=== PATIENT | female | born 1945 | race Caucasian/White ===

== ENCOUNTER → 2018-01-08 09:31 | Outpatient (REF) | payer MEDICARE, MEDICAID, SELFPAY ==
[2018-01-08 22:13] LABS: Anion Gap 4.8 mmol/L (3-11); BUN 16 mg/dL (7-18); CO2 31.2 mmol/L (21.0-32.0); CREATININE 1.11 mg/dL (0.55-1.02); Calcium 8.3 mg/dL (8.5-10.1); Chloride 106 mmol/L (98-107); Estimated GFR 48.59 (mL/min/1.73m2); Glucose 74 mg/dL (70-100); Potassium 3.7 mmol/L (3.5-5.1); Sodium 142 mmol/L (136-145)
== END ==
LOC: NCHCN 09:31
PROVIDERS: PCP Nurse Practitioner Family; Visit Provider Registered Nurse
DX: I10 Essential (primary) hypertension (principal)
CPT/HCPCS: 80048

== ENCOUNTER → 2018-01-10 08:25 | Outpatient (REF) | payer MEDICARE, MEDICAID, SELFPAY ==
[2018-01-10 21:40] LABS: Anion Gap 9.4 mmol/L (3-11); BUN 24 mg/dL (7-18); CO2 29.6 mmol/L (21.0-32.0); CREATININE 0.97 mg/dL (0.55-1.02); Calcium 8.8 mg/dL (8.5-10.1); Chloride 103 mmol/L (98-107); Estimated GFR 56.77 (mL/min/1.73m2); Glucose 86 mg/dL (70-100); Potassium 3.9 mmol/L (3.5-5.1); Sodium 142 mmol/L (136-145)
== END ==
LOC: NCHCN 08:25
PROVIDERS: PCP Nurse Practitioner Family; Visit Provider Registered Nurse
DX: I10 Essential (primary) hypertension (principal)
CPT/HCPCS: 80048

== ENCOUNTER 2021-07-30 16:06 | Outpatient (REF) | payer MEDICARE, MEDICAID, SELFPAY ==
[2021-07-30 15:04] LABS: ALT 18 U/L (14-59); AST 18 U/L (15-37); Albumin 3.4 g/dL (3.4-5.0); Alkaline Phosphatase 104 U/L (46-116); Anion Gap 9.5 mmol/L (3-11); BUN 22 mg/dL (7-18); Bilirubin, Total 0.3 mg/dL (0.2-1.0); CO2 28.5 mmol/L (21.0-32.0); Calculated LDL 88 mg/dL (<100); Chloride 103 mmol/L (98-107); Cholesterol 154 mg/dL (<200); Glucose 91 mg/dL (74-106); HDL Cholesterol 48 mg/dL (40-60); Potassium 4.4 mmol/L (3.5-5.1); Sodium 141 mmol/L (136-145); Triglyceride 93 mg/dL (<150)
[2021-07-30 15:12] LABS: Hemoglobin A1C 5.8 % (<5.7)
--- OUTSIDE RECORDS SUMMARY | 2021-07-30 16:14 | XMS_ITS | CCD ---
:1945 Author Care Team Providers Name Role Phone Chelsea COLBERT Attending Physician Unavailable Chelsea COLBERT Rounding (Secondary) Physician Unavailab le Vital Signs Unknown or Not Available. Allergies Allergy Code Allergy Type Reaction Status ASA (aspirin) 1191 Drug allergy Nausea Active ASPIRIN 1191 Drug allergy UNKNOWN Active Procedures Unknown or Not Available. History of Immunizations Unknown or Not Available. Problems Problem Code Start Date Resolved Date Status LOCALIZED OSTEOARTHROSIS, 82296 Ac tive LOWER LEG BMI 40.0-44.9, ADULT V8541 Active Results BASIC METABOLIC PANEL (BMP) - Collect Da te/Time: 04/07/2021 10:11 Test Name Code Test Result Test Units Test Ref Range GLUCOSE 2345-7 97 mg/dL L=70 H=11 6 BUN 3094-0 20 mg/dL L=6 H=25 CREATININE 2160-0 1.02 mg/dL L=0.51 H=0.95 SODIUM SERUM 2951-2 148 mmol/L L=136 H=14 5 POTASSIUM SERUM 2823-3 4.2 mmol/L L=3.4 H =5.2 CHLORIDE SERUM 2075-0 108 mmol/L L=96 H= 110 CARBON DIOXIDE (CO2) 2028-9 30 mmol/L L=22 H=34 ANION GAP 33465-5 9.7 mmol/L CALCIUM SERUM 36288-5 9.0 mg/dL L=8.2 H=10.2 AGE 76 years eGFR (non-Afr.Amer.) 48795-4 53 mL/min eGFR (Afr-Equatorial Guinean) 98082-1 64 mL/min Active Medications Medication Code Dose Units Frequency Route Modification Start Date/Time Lasix 20MG 1 TABLET TWICE A DAY ORAL 1 Oral Tablet 12:35 Prescription Detail TAKE 1 TABLET ORAL TWICE A D AY x 3 days (through 11/28) then continue 1 TAB DAILY Allopurinol [id number] 100 MILLIGRAMS DAILY ORAL 1 100MG Oral 12:26 Tablet Prescription Detail TAKE 100 MILLIGRAMS ORAL TRACY LY Levothyroxine 874730 125 MCG DAILY ORAL 11/25/2020 125MCG Oral Tablet 12:26 Prescription Detail TAKE 125 MCG ORAL DAILY Lisinopril 30MG 162381 30 MILLIGRAMS DAILY ORAL 11/25 Oral Tablet 12:26 Prescription Detail TAKE 30 MILLIGRAMS ORAL ELIE Y Loratadine 10MG 396924 10 MILLIGRAMS DAILY ORAL 11/25 Oral Tablet 12:26 Prescription Detail TAKE 10 MILLIGRAMS ORAL ELIE Y Lovastatin 40MG 073873 40 MILLIGRAMS DAILY ORAL 11/25 Oral Tablet 12:26 Prescription Detail TAKE 40 MILLIGRAMS ORAL ELIE Y Omeprazole 40MG [id number] 40 MILLIGRAMS DAILY ORAL 11/25 Oral Capsule, 12:26 Delayed Release Prescription Detail TAKE 40 MILLIGRAMS ORAL ELIE Y Promethazine HCl 133402 12.5 mL NEEDED ORAL 11/25 6.25MG/5ML Oral EVERY 8 12:26 Syrup HOURS Prescription Detail TAKE 12.5 mL ORAL NEEDED EVERY 8 HOURS Triamcinolone [id number] 1 EACH NEEDED TOPICAL 11/26/19 21 Acetonide 0.1% TWICE APPLICATION 12:26 Topical DAILY application Cream Prescription Detail 1 EACH TOPICAL APPLICATION NEEDED TWICE DAILY Medications Administered During Visit Unknown or Not Available. Encounters Encounter Diagnosis Diagnosis Code Start Date Encounter for examination of blood pressure Z0130 04/07/2021 without abnormal findings Social History Smoking Status Code Start Date End Date Former smoker [id number] Patient Decision Aids Unknown or Not Available. Discharge Instructions You were admitted to [facility] on 04/07/2021 08:48 with a principal diagnosis of Encounter for examination o f blood pressure without abnormal findings You had the following tests done: BASIC METABOLIC PANEL (BMP) You were discharged from [facility] on 04/07/2021 00:00 Should you have any questions prior to d ischarge, please contact a member of your healthcare team. If you have left the ho spital and have any questions, please contact your primary care physician. Chief Complaint and Reason For Visit Unknown or Not Available. Function Status Unknown or Not Available. Plan of Care Unknown or Not Available. Referral/Transition of Care Unknown or Not Available.
--- OUTSIDE RECORDS SUMMARY | 2021-07-30 16:14 | XMS_ITS | CCD ---
[...] Start Date Resolved Date Status LOCALIZED OSTEOARTHROSIS, 65403 Ac tive LOWER LEG BMI 40.0-44.9, ADULT V8541 Active Results Unknown or Not Available. Active Medications Medication Code Dose Units Frequency Route Modification Start Date/Time Lasix 20MG 1 TABLET TWICE A DAY ORAL 1 Oral Tablet 12:35 Prescription Detail TAKE 1 TABLET ORAL TWICE A D AY x 3 days (through 11/28) then continue 1 TAB DAILY Allopurinol 029377 100 MILLIGRAMS DAILY ORAL 1 100MG Oral 12:26 Tablet Prescription Detail TAKE 100 MILLIGRAMS ORAL TRACY LY Levothyroxine 380592 125 MCG DAILY ORAL 11/25/2020 125MCG Oral Tablet 12:26 Prescription Detail TAKE 125 MCG ORAL DAILY Lisinopril 30MG 469268 30 MILLIGRAMS DAILY ORAL 11/25 Oral Tablet 12:26 Prescription Detail TAKE 30 MILLIGRAMS ORAL ELIE Y Loratadine 10MG 373349 10 MILLIGRAMS DAILY ORAL 11/25 Oral Tablet 12:26 Prescription Detail TAKE 10 MILLIGRAMS ORAL ELIE Y Lovastatin 40MG 40 MILLIGRAMS DAILY ORAL 11/25 Oral Tablet 12:26 Prescription Detail TAKE 40 MILLIGRAMS ORAL ELIE Y Omeprazole 40MG [id number] 40 MILLIGRAMS DAILY ORAL 11/25 Oral Capsule, 12:26 Delayed Release Prescription Detail TAKE 40 MILLIGRAMS ORAL ELIE Y Promethazine HCl 281271 12.5 mL NEEDED ORAL 11/25 6.25MG/5ML Oral EVERY 8 12:26 Syrup HOURS Prescription Detail TAKE 12.5 mL ORAL NEEDED EVERY 8 HOURS Triamcinolone 8228093 1 EACH NEEDED TOPICAL 11/26/19 21 Acetonide 0.1% TWICE APPLICATION 12:26 Topical DAILY application Cream Prescription Detail 1 EACH TOPICAL APPLICATION NEEDED TWICE DAILY Medications Administered During Visit Unknown or Not Available. Encounters Encounter Diagnosis Diagnosis Code Start Date Hypertensive heart disease with heart failure I110 04/21/2021 Social History Smoking Status Code Start Date End Date Former smoker [id number] Patient Decision Aids Unknown or Not Available. Discharge Instructions You were admitted to [facility] on 04/21/2021 10:25 with a principal diagnosis of Hypertensive heart disease with heart failure You were discharged from [facility] on 04/21/2021 00:00 Should you have any questions prior [...]
--- OUTSIDE RECORDS SUMMARY | 2021-07-30 16:15 | XMS_ITS | CCD ---
:1945 Author Care Team Providers Name Role Phone Brijesh OVIEDO MD Attending Physician Unavailable NOELLE Er Physician 1 Unavailable MD LILY Rounding (Secondary) Physician Unavailab le Vital Signs Vital Sign Value Unit Date/Time Recent/Initial? BP Systolic 182 mmHg 11/24/2020 17:18 Initial VS BP Diastolic 81 mmHg 11/24/2020 17:18 Initial VS Respiratory Rate 18 bpm 11/24/2020 17:18 Initial VS Heart Rate 105 bpm 11/24/2020 17:18 Initial VS O2 % BldC Oximetry 94 % 11/24/2020 17:18 Initi al VS Body Temperature 36.5 degrees 11/24/2020 17:18 Initial VS BMI (Body Mass 42.38 kg/m^2 11/24/2020 17:23 Initial V S Index) Weight Measured 287.01 lbs 11/24/2020 17:23 Initial VS Height 69 in 11/24/2020 17:23 Initial VS BSA (Body Surface 2.52 m^2 11/24/2020 17:23 Initia l VS Area) Weight Measured 279.3 lbs 11/25/2020 04:20 Most Rec ent VS BP Systolic 122 mmHg 11/25/2020 11:04 Most Recent VS BP Diastolic 68 mmHg 11/25/2020 11:04 Most Recent VS Respiratory Rate 19 bpm 11/25/2020 11:04 Most Re cent VS Heart Rate 62 bpm 11/25/2020 11:04 Most Recent VS O2 % BldC Oximetry 94 % 11/25/2020 11:04 Most Recent VS Body Temperature 36.2 degrees 11/25/2020 11:04 Most Re cent VS Allergies Allergy Code Allergy Type Reaction Status ASA (aspirin) 1191 Drug allergy Nausea Active ASPIRIN 1191 Drug allergy UNKNOWN Active Procedures Unknown or Not Available. History of Immunizations Unknown or Not Available. Problems Problem Code Start Date Resolved Date Status LOCALIZED OSTEOARTHROSIS, 42697 Ac tive LOWER LEG BMI 40.0-44.9, ADULT V8541 Active Results BASIC METABOLIC PANEL (BMP) - Collect Da te/Time: 11/25/2020 06:10 Test Name Code Test Result Test Units Test Ref Range GLUCOSE 2345-7 93 mg/dL L=70 H=11 6 BUN 3094-0 19 mg/dL L=6 H=25 CREATININE 2160-0 0.94 mg/dL L=0.51 H=0.95 SODIUM SERUM 2951-2 144 mmol/L L=136 H=14 5 POTASSIUM SERUM 2823-3 3.9 mmol/L L=3.4 H =5.2 CHLORIDE SERUM 2075-0 104 mmol/L L=96 H= 110 CARBON DIOXIDE (CO2) 2028-9 31 mmol/L L=22 H=34 ANION GAP 49971-4 8.9 mmol/L CALCIUM SERUM 79647-6 9.3 mg/dL L=8.2 H=10.2 AGE 75 years eGFR (non-Afr.Amer.) 41130-5 58 mL/min eGFR (Afr-Egyptian) 31193-3 71 mL/min BNP (PRO-B NATRIURETIC PEPTIDE) - [facility] Date/Time: 11/24/2020 11:54 Test Name Code Test Result Test Units Test Ref Range NT-proBNP 20153-5 4320.0 pg/mL L=0.0 H=12 5 COMPREHENSIVE METABOLIC PANEL (CMP) - Co llect Date/Time: 11/24/2020 11:54 Test Name Code Test Result Test Units Test Ref Range GLUCOSE 2345-7 98 mg/dL L=70 H=11 6 BUN 3094-0 21 mg/dL L=6 H=25 CREATININE 2160-0 1.02 mg/dL L=0.51 H=0.95 SODIUM SERUM 2951-2 144 mmol/L L=136 H=14 5 POTASSIUM SERUM 2823-3 4.3 mmol/L L=3.4 H =5.2 CHLORIDE SERUM 2075-0 108 mmol/L L=96 H= 110 CARBON DIOXIDE (CO2) 2028-9 24 mmol/L L=22 H=34 ANION GAP 10292-1 11.6 mmol/L CALCIUM SERUM 04814-1 8.9 mg/dL L=8.2 H=10.2 BILIRUBIN TOTAL 1975-2 0.4 mg/dL L=0.0 H =1.3 ALK. PHOS. 6768-6 96 U/L L=46 H=11 6 SGOT (AST) 1920-8 24 U/L L=15 H=37 SGPT (ALT) 1742-6 34 U/L L=12 H=78 TOTAL PROTEIN 2885-2 7.3 gm/dL L=6.0 H=8 .0 ALBUMIN 1751-7 3.7 gm/dL L=3.4 H=5. 0 AGE 75 years eGFR (non-Afr.Amer.) 40935-0 53 mL/min eGFR (Afr-Egyptian) 42770-3 64 mL/min MAGNESIUM SERUM - Collect Date/Time: 11/2020 06:10 Test Name Code Test Result Test Units Test Ref Range MAGNESIUM 19314-1 1.6 mg/dL L=1.8 H=2. 4 MAGNESIUM SERUM - Collect Date/Time: 10/2020 11:54 Test Name Code Test Result Test Units Test Ref Range MAGNESIUM 52572-9 1.6 mg/dL L=1.8 H=2. 4 TROPONIN-I ADM. - Collect Date/Time: 10/2020 11:54 Test Name Code Test Result Test Units Test Ref Range TROPONIN-I 95401-6 0.033 ng/mL L=0.000 H=0. 060 CBC W/ DIFFERENTIAL - Collect Date/Time: 11/25/2020 06:10 Test Name Code Test Result Test Units Test Ref Range WBC 6690-2 8.53 th/cmm L=5.00 H=10.00 NEUT % 60.8 % L=40.0 H=80.0 LYMPH % 28.1 % L=10.0 H=50.0 MONO % 52920-8 8.8 % L=2.0 H=12.0 EOS % 1.3 % L=0.0 H=8. 0 BASO % 0.6 % L=0.0 H=3. 0 IG % 2514-8 0.4 % L=0.0 H=1. 1 NRBC % 97174-0 0.0 % L=0.0 H=0. 0 NEUT abs count 751-8 5.2 th/cmm L=1.6 H= 8.4 LYMPH abs count 731-0 2.4 th/cmm L=1.5 H =4.0 MONO abs count 742-7 0.8 th/cmm L=0.2 H= 1.0 EOS abs count 711-2 0.1 th/cmm L=0.0 H=0 .5 BASO abs count 704-7 0.1 th/cmm L=0.0 H= 0.2 IG abs count 75052-4 0.0 th/cmm L=0.0 H=0. 1 NRBC abs count 98170-6 0.0 mil/cmm L=0.0 H= 0.0 RBC 789-8 4.14 mil/cmm L=3.90 H=5.40 HEMOGLOBIN 718-7 12.6 gm/dL L=12.0 H=16.0 HEMATOCRIT 4544-3 38 % L=37 H=47 MCV 787-2 92 fL L=82 H=92 MCH 785-6 30.4 pg L=27.0 H=31.0 MCHC 786-4 33.1 % L=32.0 H=36.0 RDW-SD 788-0 46.4 fL L=39.0 H=49.0 PLATELET COUNT 777-3 238 th/cmm L=150 H= 450 CBC W/ DIFFERENTIAL - Collect Date/Time: 11/24/2020 11:54 Test Name Code Test Result Test Units Test Ref Range WBC 6690-2 9.20 th/cmm L=5.00 H=10.00 NEUT % 60.1 % L=40.0 H=80.0 LYMPH % 30.0 % L=10.0 H=50.0 MONO % 50811-9 7.9 % L=2.0 H=12.0 EOS % 1.1 % L=0.0 H=8. 0 BASO % 0.5 % L=0.0 H=3. 0 IG % 2514-8 0.4 % L=0.0 H=1. 1 NRBC % 42243-9 0.0 % L=0.0 H=0. 0 NEUT abs count 751-8 5.5 th/cmm L=1.6 H= 8.4 LYMPH abs count 731-0 2.8 th/cmm L=1.5 H =4.0 MONO abs count 742-7 0.7 th/cmm L=0.2 H= 1.0 EOS abs count 711-2 0.1 th/cmm L=0.0 H=0 .5 BASO abs count 704-7 0.1 th/cmm L=0.0 H= 0.2 IG abs count 31026-9 0.0 th/cmm L=0.0 H=0. 1 NRBC abs count 38553-2 0.0 mil/cmm L=0.0 H= 0.0 RBC 789-8 3.98 mil/cmm L=3.90 H=5.40 HEMOGLOBIN 718-7 12.0 gm/dL L=12.0 H=16.0 HEMATOCRIT 4544-3 37 % L=37 H=47 MCV 787-2 92 fL L=82 H=92 MCH 785-6 30.2 pg L=27.0 H=31.0 MCHC 786-4 32.7 % L=32.0 H=36.0 RDW-SD 788-0 46.6 fL L=39.0 H=49.0 PLATELET COUNT 777-3 250 th/cmm L=150 H= 450 KRISTOPEHR COVID RHEONIX - Collect Date/Time : 11/24/2020 17:11 Test Name Code Test Result Test Units Test Ref Range SOURCE= Nasopharyngeal N/A Tier- INPATIENT/ED N/A SARS COV2 RNA: 67316-2 NEGATIVE N/A REFERENCE RAN GE: NEGAT Active Medications Medications Administered During Visit Medication Dose Units Frequency Route Date/Time of Last Dose ACETAMINOPHEN 650 MG PRN Q4H PO 11/25/2020 TABLET: 325MG 00:36 FUROSEMIDE INJ SDV: 20 MG X1 IVP 11/24 20MG/2ML 22:03 FUROSEMIDE INJ SDV: 20 MG BID (0800 AND IVP 20MG/2ML 1459) 08:14 LEVOTHYROXINE 125 MCG DAILY PO 11/25/2020 TABLET: 125MCG 08:14 ATORVASTATIN TABLET: 20 MG DAILY PO 11/2020 20MG 08:14 LISINOPRIL TABLET: 30 MG DAILY PO 2020 10MG 08:14 ALLOPURINOL TABLET: 100 MG DAILY PO 11/25 100MG 08:14 PANTOPRAZOLE TABLET: 40 MG Q7AM PO 11/2020 40MG 07:16 MAGNESIUM SULF X1 11/25/2020 PREMIX IV BA:58 2GM/50ML Encounters Encounter Diagnosis Diagnosis Code Start Date Essential (primary) hypertension I10 021 Social History Smoking Status Code Start Date End Date Former smoker [id number] Patient Decision Aids Patient Decision Aid Heart Failure Patient Portal Access Discharge Instructions You were admitted to [facility] on 11/24/2020 15:38 with a principal diagnosis of Essential (primary) hyperte nsion You had the following tests done: BASIC METABOLIC PANEL (BMP) CBC W/ DIFFERENTIAL MAGNESIUM SERUM [facility] RHEONIX BNP (PRO-B NATRIURETIC PEPTIDE) CBC W/ DIFFERENTIAL COMPREHENSIVE METABOLIC PANEL (CMP) MAGNESIUM SERUM TROPONIN-I ADM. You were discharged from [facility] on 11/25/2020 14:40 Should you have any questions prior to d ischarge, please contact a member of your healthcare team. If you have left the spital and have any questions, please contact your primary care physician. Chief Complaint and Reason For Visit Chief Complaint Date of Onset CHF 11/25/2020 Function Status Unknown or Not Available. Plan of Care Unknown or Not Available. Referral/Transition of Care Unknown or Not Available.
--- OUTSIDE RECORDS SUMMARY | 2021-07-30 16:15 | XMS_ITS | CCD ---
:1945 Author Care Team Providers Name Role Phone Chelsea COLBERT MD Attending Physician Unavailable Vital Signs Unknown or Not Available. Allergies Allergy Code Allergy Type Reaction Status ASA (aspirin) 1191 Drug allergy Nausea Active ASPIRIN 1191 Drug allergy UNKNOWN Active Procedures Unknown or Not Available. History of Immunizations Unknown or Not Available. Problems Problem Code Start Date Resolved Date Status LOCALIZED OSTEOARTHROSIS, 10189 Ac tive LOWER LEG BMI 40.0-44.9, ADULT V8541 Active Results BNP (PRO-B NATRIURETIC PEPTIDE) - [facility] t Date/Time: 01/06/2021 09:57 Test Name Code Test Result Test Units Test Ref Range NT-proBNP 71877-1 952.0 pg/mL L=0.0 H=12 5 COMPREHENSIVE METABOLIC PANEL (CMP) - Co llect Date/Time: 01/06/2021 09:57 Test Name Code Test Result Test Units Test Ref Range GLUCOSE 2345-7 96 mg/dL L=70 H=11 6 BUN 3094-0 23 mg/dL L=6 H=25 CREATININE 2160-0 1.03 mg/dL L=0.51 H=0.95 SODIUM SERUM 2951-2 142 mmol/L L=136 H=14 5 POTASSIUM SERUM 2823-3 4.3 mmol/L L=3.4 H =5.2 CHLORIDE SERUM 2075-0 106 mmol/L L=96 H= 110 CARBON DIOXIDE (CO2) 2028-9 30 mmol/L L=22 H=34 ANION GAP 89644-5 5.6 mmol/L CALCIUM SERUM 31382-6 9.0 mg/dL L=8.2 H=10.2 BILIRUBIN TOTAL 1975-2 0.3 mg/dL L=0.0 H =1.3 ALK. PHOS. 6768-6 93 U/L L=46 H=11 6 SGOT (AST) 1920-8 16 U/L L=15 H=37 SGPT (ALT) 1742-6 24 U/L L=12 H=78 TOTAL PROTEIN 2885-2 7.2 gm/dL L=6.0 H=8 .0 ALBUMIN 1751-7 3.7 gm/dL L=3.4 H=5. 0 AGE 75 years eGFR (non-Afr.Amer.) 59900-3 53 mL/min eGFR (Afr-Norwegian) 65261-8 64 mL/min THYROID TESTING CASCADE - Collect Date/T davian: 01/06/2021 09:57 Test Name Code Test Result Test Units Test Ref Range TSH. 3014-8 0.977 uIU/mL L=0.360 H=3. 740 Active Medications Medication Code Dose Units Frequency Route Modification Start Date/Time Lasix 20MG 1 TABLET TWICE A DAY ORAL 1 Oral Tablet 12:35 Prescription Detail TAKE 1 TABLET ORAL TWICE A D AY x 3 days (through 11/28) then continue 1 TAB DAILY Allopurinol 650514 100 MILLIGRAMS DAILY ORAL 1 100MG Oral 12:26 Tablet Prescription Detail TAKE 100 MILLIGRAMS ORAL TRACY LY Levothyroxine 185512 125 MCG DAILY ORAL 11/25/2020 125MCG Oral Tablet 12:26 Prescription Detail TAKE 125 MCG ORAL DAILY Lisinopril 30MG 746256 30 MILLIGRAMS DAILY ORAL 11/25 Oral Tablet 12:26 Prescription Detail TAKE 30 MILLIGRAMS ORAL ELIE Y Loratadine 10MG 868737 10 MILLIGRAMS DAILY ORAL 11/25 Oral Tablet 12:26 Prescription Detail TAKE 10 MILLIGRAMS ORAL ELIE Y Lovastatin 40MG 40 MILLIGRAMS DAILY ORAL 11/25 Oral Tablet 12:26 Prescription Detail TAKE 40 MILLIGRAMS ORAL ELIE Y Omeprazole 40MG 20020630 40 MILLIGRAMS DAILY ORAL 11/25 Oral Capsule, 12:26 Delayed Release Prescription Detail TAKE 40 MILLIGRAMS ORAL ELIE Y Promethazine HCl 781795 12.5 mL NEEDED ORAL 11/25 6.25MG/5ML Oral EVERY 8 12:26 Syrup HOURS Prescription Detail TAKE 12.5 mL ORAL NEEDED EVERY 8 HOURS Triamcinolone 8830049 1 EACH NEEDED TOPICAL 11/26/19 21 Acetonide 0.1% TWICE APPLICATION 12:26 Topical DAILY application Cream Prescription Detail 1 EACH TOPICAL APPLICATION NEEDED TWICE DAILY Medications Administered During Visit Unknown or Not Available. Encounters Encounter Diagnosis Diagnosis Code Start Date Hypertensive heart disease with heart failure I110 01/06/2021 Social History Smoking Status Code Start Date End Date Former smoker [id number] Patient Decision Aids Unknown or Not Available. Discharge Instructions You were admitted to [facility] on 01/06/2021 07:41 with a principal diagnosis of Hypertensive heart disease with heart failure You had the following tests done: BNP (PRO-B NATRIURETIC PEPTIDE) COMPREHENSIVE METABOLIC PANEL (CMP ) THYROID TESTING CASCADE You were discharged from [facility] on 01/06/2021 07:41 Should you have any questions prior to [...]
--- OUTSIDE RECORDS SUMMARY | 2021-07-30 16:15 | XMS_ITS | CCD ---
[...] Start Date Resolved Date Status LOCALIZED OSTEOARTHROSIS, 13316 Ac tive LOWER LEG BMI 40.0-44.9, ADULT V8541 Active Results Unknown or Not Available. Active Medications Medication Code Dose Units Frequency Route Modification Start Date/Time Lasix 20MG 1 TABLET TWICE A DAY ORAL 1 Oral Tablet 12:35 Prescription Detail TAKE 1 TABLET ORAL TWICE A D AY x 3 days (through 11/28) then continue 1 TAB DAILY Allopurinol 331672 100 MILLIGRAMS DAILY ORAL 1 100MG Oral 12:26 Tablet Prescription Detail TAKE 100 MILLIGRAMS ORAL TRACY LY Levothyroxine 422392 125 MCG DAILY ORAL 11/25/2020 125MCG Oral Tablet 12:26 Prescription Detail TAKE 125 MCG ORAL DAILY Lisinopril 30MG 431493 30 MILLIGRAMS DAILY ORAL 11/25 Oral Tablet 12:26 Prescription Detail TAKE 30 MILLIGRAMS ORAL ELIE Y Loratadine 10MG 934320 10 MILLIGRAMS DAILY ORAL 11/25 Oral Tablet 12:26 Prescription Detail TAKE 10 MILLIGRAMS ORAL ELIE Y Lovastatin 40MG 40 MILLIGRAMS DAILY ORAL 11/25 Oral Tablet 12:26 Prescription Detail TAKE 40 MILLIGRAMS ORAL ELIE Y Omeprazole 40MG 20020630 40 MILLIGRAMS DAILY ORAL 11/25 Oral Capsule, 12:26 Delayed Release Prescription Detail TAKE 40 MILLIGRAMS ORAL ELIE Y Promethazine HCl 665843 12.5 mL NEEDED ORAL 11/25 6.25MG/5ML Oral EVERY 8 12:26 Syrup HOURS Prescription Detail TAKE 12.5 mL ORAL NEEDED EVERY 8 HOURS Triamcinolone 6964089 1 EACH NEEDED TOPICAL 11/26/19 21 Acetonide 0.1% TWICE APPLICATION 12:26 Topical DAILY application Cream Prescription Detail 1 EACH TOPICAL APPLICATION NEEDED TWICE DAILY Medications Administered During Visit Unknown or Not Available. Encounters Encounter Diagnosis Diagnosis Code Start Date Unspecified systolic (congestive) heart failure I5020 12/30/2020 Social History Smoking Status Code Start Date End Date Former smoker [id number] Patient Decision Aids Unknown or Not Available. Discharge Instructions You were admitted to [facility] on 12/30/2020 08:05 with a principal diagnosis of Unspecified systolic (conge stive) heart failure You were discharged from [facility] on 12/30/2020 08:05 Should you have any questions prior to [...]
--- OUTSIDE RECORDS SUMMARY | 2021-07-30 16:15 | XMS_ITS | CCD ---
[...] Start Date Resolved Date Status LOCALIZED OSTEOARTHROSIS, 36767 Ac tive LOWER LEG BMI 40.0-44.9, ADULT V8541 Active Results Unknown or Not Available. Active Medications Medication Code Dose Units Frequency Route Modification Start Date/Time Lasix 20MG 1 TABLET TWICE A DAY ORAL 1 Oral Tablet 12:35 Prescription Detail TAKE 1 TABLET ORAL TWICE A D AY x 3 days (through 11/28) then continue 1 TAB DAILY Allopurinol 723379 100 MILLIGRAMS DAILY ORAL 1 100MG Oral 12:26 Tablet Prescription Detail TAKE 100 MILLIGRAMS ORAL TRACY LY Levothyroxine 458832 125 MCG DAILY ORAL 11/25/2020 125MCG Oral Tablet 12:26 Prescription Detail TAKE 125 MCG ORAL DAILY Lisinopril 30MG 292776 30 MILLIGRAMS DAILY ORAL 11/25 Oral Tablet 12:26 Prescription Detail TAKE 30 MILLIGRAMS ORAL ELIE Y Loratadine 10MG 133855 10 MILLIGRAMS DAILY ORAL 11/25 Oral Tablet 12:26 Prescription Detail TAKE 10 MILLIGRAMS ORAL ELIE Y Lovastatin 40MG 40 MILLIGRAMS DAILY ORAL 11/25 Oral Tablet 12:26 Prescription Detail TAKE 40 MILLIGRAMS ORAL ELIE Y Omeprazole 40MG 20020630 40 MILLIGRAMS DAILY ORAL 11/25 Oral Capsule, 12:26 Delayed Release Prescription Detail TAKE 40 MILLIGRAMS ORAL ELIE Y Promethazine HCl 705197 12.5 mL NEEDED ORAL 11/25 6.25MG/5ML Oral EVERY 8 12:26 Syrup HOURS Prescription Detail TAKE 12.5 mL ORAL NEEDED EVERY 8 HOURS Triamcinolone 1111365 1 EACH NEEDED TOPICAL 11/26/19 21 Acetonide 0.1% TWICE APPLICATION 12:26 Topical DAILY application Cream Prescription Detail 1 EACH TOPICAL APPLICATION NEEDED TWICE DAILY Medications Administered During Visit Unknown or Not Available. Encounters Encounter Diagnosis Diagnosis Code Start Date Procedure and treatment not carried out because Z5329 2021 of patient's decision for other reasons Social History Smoking Status Code Start Date End Date Former smoker [id number] Patient Decision Aids Unknown or Not Available. Discharge Instructions You were admitted to [facility] on 2021 12:33 with a principal diagnosis of Procedure and treatment not carried out because of patient's decision for other reasons You were discharged from [facility] on 2021 12:33 Should you have any questions prior to [...]
[2021-08-02 11:50] LABS: Hepatitis C Ab w Rflx HCV PCR Negative (Negative)
== END 2021-07-30 16:07 | disposition home or self-care (01) ==
LOC: NCHCN 16:06
PROVIDERS: PCP Nurse Practitioner Family; Visit Provider Registered Nurse
DX: E66.01 Morbid (severe) obesity due to excess calories (principal); R73.03 Prediabetes; I50.22 Chronic systolic (congestive) heart failure; Z13.818 Encounter for screening for other digestive system disorders; Z11.59 Encounter for screening for other viral diseases
CPT/HCPCS: 80053; 80061; 86803; 83036

== ENCOUNTER 2021-09-06 18:12 | Outpatient (REF) | payer MEDICARE, MEDICAID, SELFPAY ==
[2021-09-06 17:22] LABS: ESR 33 mm/hr (0-30)
[2021-09-06 17:32] LABS: C-Reactive Protein 6.84 mg/dL (0.0-0.3)
[2021-09-08 10:25] LABS: Lyme Ab w Rflx to Lyme Confirm Negative (Negative)
== END 2021-09-06 18:13 | disposition home or self-care (01) ==
LOC: NCHCN 18:12
PROVIDERS: PCP Nurse Practitioner Family; Visit Provider Internal Medicine
DX: M25.50 Pain in unspecified joint (principal)
CPT/HCPCS: 85652; 86140; 86618

== ENCOUNTER 2021-09-21 16:04 | Outpatient (REF) | payer MEDICARE, MEDICAID, SELFPAY ==
[2021-09-23 11:03] LABS: COVID-19 RT-PCR UVMMC Result Negative (Negative)
== END 2021-09-21 16:05 | disposition home or self-care (01) ==
LOC: NCHCN 16:04
PROVIDERS: PCP Nurse Practitioner Family; Visit Provider Nurse Practitioner Family
DX: Z20.822 Contact with and (suspected) exposure to COVID-19 (principal); R05.8 Other specified cough
CPT/HCPCS: U0003; U0005

== ENCOUNTER 2021-11-08 15:03 | Outpatient (REF) | payer MEDICARE, MEDICAID, SELFPAY ==
[2021-11-08 21:32] LABS: ESR 37 mm/hr (0-30)
[2021-11-08 21:38] LABS: C-Reactive Protein 3.17 mg/dL (0.0-0.3)
== END 2021-11-08 15:04 | disposition home or self-care (01) ==
LOC: NCHCN 15:03
PROVIDERS: PCP Nurse Practitioner Family; Visit Provider Internal Medicine
DX: M35.3 Polymyalgia rheumatica (principal)
CPT/HCPCS: 85652; 86140

== ENCOUNTER 2021-12-28 20:40 | Outpatient (REF) | payer MEDICARE, MEDICAID, SELFPAY ==
[2021-12-28 21:19] LABS: ESR 29 mm/hr (0-30)
[2021-12-28 21:24] LABS: C-Reactive Protein 2.69 mg/dL (0.0-0.3)
== END 2021-12-28 20:41 | disposition home or self-care (01) ==
LOC: NCHCN 20:40
PROVIDERS: PCP Nurse Practitioner Family; Visit Provider Internal Medicine
DX: M35.3 Polymyalgia rheumatica (principal)
CPT/HCPCS: 85652; 86140

== ENCOUNTER 2022-01-31 17:17 | Outpatient (REF) | payer MEDICARE, MEDICAID, SELFPAY ==
[2022-01-31 15:17] LABS: ESR 16 mm/hr (0-30)
[2022-01-31 15:18] LABS: HCT 41.2 % (36.0-46.0); HGB 13.2 g/dL (11.2-15.7); MCH 30.6 pg (27.0-33.0); MCV 96 fL (80-95); MPV 11.4 fL (8.0-11.0); Platelet Count 239 10^3/uL (130-400); RBC 4.31 10^6/uL (3.93-5.22); RDW 12.9 % (11.7-14.6); RDW-SD 45.9 fL
[2022-01-31 15:37] LABS: C-Reactive Protein 2.44 mg/dL (0.0-0.3); TSH 2.25 uIU/mL (0.36-3.74)
[2022-02-02 14:30] LABS: ALT 22 U/L (14-59); AST 26 U/L (15-37); Alkaline Phosphatase 90 U/L (46-116); Total Protein 7.9 g/dL (6.4-8.2)
== END 2022-01-31 17:18 | disposition home or self-care (01) ==
LOC: NCHCN 17:17
PROVIDERS: PCP Nurse Practitioner Family; Visit Provider Internal Medicine
DX: R73.03 Prediabetes (principal); E03.9 Hypothyroidism, unspecified; R53.83 Other fatigue; M35.3 Polymyalgia rheumatica; R10.11 Right upper quadrant pain
CPT/HCPCS: 85027; 85652; 84075; 84155; 84443; 84450; 84460; 86140

== ENCOUNTER 2022-03-09 16:30 | Outpatient (REF) | payer MEDICARE, MEDICAID, SELFPAY ==
[2022-03-09 14:57] LABS: ESR 46 mm/hr (0-30)
== END 2022-03-09 16:31 | disposition home or self-care (01) ==
LOC: NCHCN 16:30
PROVIDERS: PCP Nurse Practitioner Family; Visit Provider Internal Medicine
DX: M35.3 Polymyalgia rheumatica (principal)
CPT/HCPCS: 85652; 86140

== ENCOUNTER 2022-04-25 22:28 | Outpatient (REF) | payer MEDICARE, MEDICAID, SELFPAY ==
[2022-04-25 23:38] LABS: ESR 24 mm/hr (0-30); HCT 41.1 % (36.0-46.0); HGB 12.9 g/dL (11.2-15.7); MCH 30.3 pg (27.0-33.0); MCHC 31.4 % (32.0-36.0); MCV 97 fL (80-95); MPV 10.9 fL (8.0-11.0); Platelet Count 246 10^3/uL (130-400); RBC 4.26 10^6/uL (3.93-5.22); RDW 14.4 % (11.7-14.6); RDW-SD 50.8 fL; WBC 11.78 10^3/uL (4.4-10.8)
[2022-04-25 23:47] LABS: Anion Gap 5.8 mmol/L (3-11); BUN 21 mg/dL (7-18); C-Reactive Protein 2.94 mg/dL (0.0-0.3); CO2 31.2 mmol/L (21.0-32.0); CREATININE 1.2 mg/dL (0.55-1.02); Calcium 8.9 mg/dL (8.5-10.1); Chloride 104 mmol/L (98-107); Estimated GFR 47.21 (mL/min/1.73m2); Glucose 120 mg/dL (74-106); Potassium 5.1 mmol/L (3.5-5.1); Sodium 141 mmol/L (136-145)
== END 2022-04-25 22:29 | disposition home or self-care (01) ==
LOC: NCHCN 22:28
PROVIDERS: PCP Internal Medicine; Visit Provider Internal Medicine
DX: R06.00 Dyspnea, unspecified (principal); M35.3 Polymyalgia rheumatica; I50.33 Acute on chronic diastolic (congestive) heart failure
CPT/HCPCS: 80048; 85027; 85652; 86140

== ENCOUNTER 2022-06-09 09:00 | Outpatient (REF) | payer MEDICARE, MEDICAID, SELFPAY ==
[2022-06-09 14:49] LABS: Abs Immature Grans 0.06 10^3/uL (0.0-0.06); Absolute Basophil Count 0.05 10^3/uL (0.0-0.2); Absolute Eosinophil Count 0.13 10^3/uL (0.0-0.7); Absolute Lymphocyte Count 2.08 10^3/uL (1.2-3.4); Absolute Monocyte Count 0.78 10^3/uL (0.1-0.8); Absolute Neutrophil Count 7.64 10^3/uL (1.2-6.7); Basophils % 0.5; Eosinophils % 1.2; HCT 41.3 % (36.0-46.0); HGB 13.1 g/dL (11.2-15.7); Immature Grans % 0.6; Lymphocytes % 19.4; MCH 30.8 pg (27.0-33.0); MCHC 31.7 % (32.0-36.0); MCV 97 fL (80-95); MPV 10.6 fL (8.0-11.0); Monocytes % 7.3; Platelet Count 281 10^3/uL (130-400); RBC 4.25 10^6/uL (3.93-5.22); RDW 14.4 % (11.7-14.6); RDW-SD 51.7 fL; WBC 10.74 10^3/uL (4.4-10.8)
[2022-06-09 15:14] LABS: ALT 24 U/L (14-59); AST 27 U/L (15-37); Albumin 3.7 g/dL (3.4-5.0); Alkaline Phosphatase 90 U/L (46-116); Anion Gap 6.9 mmol/L (3-11); BUN 28 mg/dL (7-18); Bilirubin, Total 0.5 mg/dL (0.2-1.0); CO2 28.1 mmol/L (21.0-32.0); CREATININE 1.3 mg/dL (0.55-1.02); Calcium 9.3 mg/dL (8.5-10.1); Chloride 107 mmol/L (98-107); Estimated GFR 42.88 (mL/min/1.73m2); Glucose 146 mg/dL (74-106); Lipase 125 U/L (73-393); Potassium 4.8 mmol/L (3.5-5.1); Sodium 142 mmol/L (136-145); Total Protein 7.4 g/dL (6.4-8.2)
== END 2022-06-09 09:01 | disposition home or self-care (01) ==
LOC: NCHCN 09:00
PROVIDERS: PCP Internal Medicine; Visit Provider Family Medicine
DX: R11.0 Nausea (principal); R10.13 Epigastric pain
CPT/HCPCS: 80053; 83690; 85025

== ENCOUNTER 2022-09-23 12:00 | Outpatient (REF) | payer MEDICARE, MEDICAID, SELFPAY | END 2022-09-23 12:01 | disposition home or self-care (01) | LOC: NCHCN 12:00 | PROVIDERS: PCP Internal Medicine; Visit Provider Internal Medicine | DX: R39.89 Other symptoms and signs involving the genitourinary system (principal); R82.998 Other abnormal findings in urine | CPT/HCPCS: 87077; 87086; 87186 ==

== ENCOUNTER 2022-10-14 14:54 | Outpatient (REF) | payer MEDICARE, MEDICAID, SELFPAY ==
[2022-10-14 20:48] LABS: ESR 18 mm/hr (0-30)
[2022-10-14 20:56] LABS: C-Reactive Protein 2.81 mg/dL (0.0-0.3)
== END 2022-10-14 14:55 | disposition home or self-care (01) ==
LOC: NCHCN 14:54
PROVIDERS: PCP Internal Medicine; Visit Provider Internal Medicine
DX: M35.3 Polymyalgia rheumatica (principal)
CPT/HCPCS: 85652; 86140

== ENCOUNTER 2023-04-20 12:50 | Outpatient (REF) | payer MEDICARE, MEDICAID, SELFPAY ==
[2023-04-20 21:53] LABS: Abs Immature Grans 0.04 10^3/uL (0.0-0.06); Absolute Basophil Count 0.05 10^3/uL (0.0-0.2); Absolute Eosinophil Count 0.11 10^3/uL (0.0-0.7); Absolute Lymphocyte Count 1.96 10^3/uL (1.2-3.4); Absolute Monocyte Count 0.72 10^3/uL (0.1-0.8); Absolute Neutrophil Count 6.53 10^3/uL (1.2-6.7); Basophils % 0.5; Eosinophils % 1.2; HCT 40.4 % (36.0-46.0); HGB 13.1 g/dL (11.2-15.7); Immature Grans % 0.4; Lymphocytes % 20.8; MCH 29.7 pg (27.0-33.0); MCHC 32.4 % (32.0-36.0); MCV 92 fL (80-95); Monocytes % 7.7; Neutrophils % 69.4; Platelet Count 225 10^3/uL (130-400); RBC 4.41 10^6/uL (3.93-5.22); RDW-SD 47.5 fL; WBC 9.41 10^3/uL (4.4-10.8)
[2023-04-20 22:35] LABS: Hemoglobin A1C 5.5 % (<5.7)
[2023-04-20 22:43] LABS: ALT 18 U/L (14-59); AST 18 U/L (15-37); Albumin 3.5 g/dL (3.4-5.0); Alkaline Phosphatase 97 U/L (46-116); Anion Gap 6.6 mmol/L (3-11); BUN 14 mg/dL (7-18); Bilirubin, Total 0.6 mg/dL (0.2-1.0); CO2 30.4 mmol/L (21.0-32.0); Calcium 9.4 mg/dL (8.5-10.1); Calculated LDL 94 mg/dL (<100); Chloride 104 mmol/L (98-107); Cholesterol 160 mg/dL (<200); Estimated GFR 58.39 (mL/min/1.73m2); Folate 4.3 ng/mL (8.6-20.0); Glucose 96 mg/dL (74-106); HDL Cholesterol 56 mg/dL (40-60); Potassium 3.8 mmol/L (3.5-5.1); Sodium 141 mmol/L (136-145); TSH (W/Ref FT4) 1.68 uIU/mL (0.36-3.74); Total Protein 7.4 g/dL (6.4-8.2); Triglyceride 50 mg/dL (<150); Vitamin B12 512 pg/mL (193-986)
== END 2023-04-20 12:51 | disposition home or self-care (01) ==
LOC: NCHCN 12:50
PROVIDERS: PCP Internal Medicine; Visit Provider Family Medicine
DX: Z13.6 Encounter for screening for cardiovascular disorders (principal); R73.03 Prediabetes; E03.9 Hypothyroidism, unspecified; D64.9 Anemia, unspecified; E66.9 Obesity, unspecified
CPT/HCPCS: 80053; 80061; 82607; 82746; 83036; 84443; 85025

== ENCOUNTER 2023-08-18 15:17 | Outpatient (REF) | payer MEDICARE, MEDICAID, SELFPAY ==
[2023-08-18 14:40] LABS: HCT 42.9 % (36.0-46.0); MCHC 32.6 % (32.0-36.0); MCV 92 fL (80-95); MPV 10.8 fL (8.0-11.0); Platelet Count 299 10^3/uL (130-400); RBC 4.67 10^6/uL (3.93-5.22); RDW 13.5 % (11.7-14.6); RDW-SD 45.8 fL; WBC 11.95 10^3/uL (4.4-10.8)
[2023-08-18 15:22] LABS: Anion Gap 12.7 mmol/L (3-11); BUN 34 mg/dL (7-18); CO2 25.3 mmol/L (21.0-32.0); CREATININE 1.5 mg/dL (0.55-1.02); Calcium 9.5 mg/dL (8.5-10.1); Chloride 106 mmol/L (98-107); Estimated GFR 35.89 (mL/min/1.73m2); Glucose 107 mg/dL (74-106); Potassium 4.6 mmol/L (3.5-5.1); Sodium 144 mmol/L (136-145)
== END 2023-08-18 15:18 | disposition home or self-care (01) ==
LOC: NCHCN 15:17
PROVIDERS: PCP Internal Medicine; Visit Provider Family Medicine
DX: R42 Dizziness and giddiness (principal)
CPT/HCPCS: 80048; 85027

== ENCOUNTER 2023-08-22 13:03 | Outpatient (REF) | payer MEDICARE, MEDICAID, SELFPAY ==
[2023-08-22 14:49] LABS: Abs Immature Grans 0.04 10^3/uL (0.0-0.06); Absolute Basophil Count 0.07 10^3/uL (0.0-0.2); Absolute Eosinophil Count 0.09 10^3/uL (0.0-0.7); Absolute Monocyte Count 0.72 10^3/uL (0.1-0.8); Absolute Neutrophil Count 6.43 10^3/uL (1.2-6.7); Basophils % 0.7; Eosinophils % 0.9; HCT 41.2 % (36.0-46.0); HGB 13.5 g/dL (11.2-15.7); Immature Grans % 0.4; Lymphocytes % 24.6; MCH 30.4 pg (27.0-33.0); MCHC 32.8 % (32.0-36.0); MCV 93 fL (80-95); MPV 10.6 fL (8.0-11.0); Monocytes % 7.4; Platelet Count 285 10^3/uL (130-400); RBC 4.44 10^6/uL (3.93-5.22); RDW 13.4 % (11.7-14.6); RDW-SD 45.7 fL; WBC 9.75 10^3/uL (4.4-10.8)
[2023-08-22 15:29] LABS: ALT 28 U/L (14-59); AST 21 U/L (15-37); Albumin 3.4 g/dL (3.4-5.0); Alkaline Phosphatase 98 U/L (46-116); Anion Gap 9.8 mmol/L (3-11); BUN 33 mg/dL (7-18); Bilirubin, Total 0.5 mg/dL (0.2-1.0); CO2 27.2 mmol/L (21.0-32.0); CREATININE 1.3 mg/dL (0.55-1.02); Calcium 9.4 mg/dL (8.5-10.1); Chloride 106 mmol/L (98-107); Estimated GFR 42.62 (mL/min/1.73m2); FREE T4 1.81 ng/dL (0.76-1.46); Glucose 110 mg/dL (74-106); Potassium 4.4 mmol/L (3.5-5.1); Sodium 143 mmol/L (136-145); TSH 0.37 uIU/Ml (0.36-3.74); Total Protein 7.4 g/dL (6.4-8.2)
== END 2023-08-22 13:04 | disposition home or self-care (01) ==
LOC: NCHCN 13:03
PROVIDERS: PCP Internal Medicine; Referring Provider Family Medicine; Visit Provider Family Medicine
DX: R63.4 Abnormal weight loss (principal)
CPT/HCPCS: 80053; 84439; 84443; 85025

== ENCOUNTER 2023-08-29 15:53 | Outpatient (REF) | payer MEDICARE, MEDICAID, SELFPAY | END 2023-08-29 15:54 | disposition home or self-care (01) | LOC: NCHCN 15:53 | PROVIDERS: PCP Internal Medicine; Referring Provider Family Medicine; Visit Provider Family Medicine | DX: M62.81 Muscle weakness (generalized) (principal) | CPT/HCPCS: 87086 ==

== ENCOUNTER 2023-09-12 15:47 | Outpatient (REF) | payer MEDICARE, MEDICAID, SELFPAY ==
[2023-09-12 21:12] LABS: Anion Gap 11.2 mmol/L (3-11); BUN 21 mg/dL (7-18); CO2 28.8 mmol/L (21.0-32.0); CREATININE 1.1 mg/dL (0.55-1.02); Calcium 8.8 mg/dL (8.5-10.1); Chloride 103 mmol/L (98-107); Estimated GFR 52.08 (mL/min/1.73m2); Glucose 108 mg/dL (74-106); Potassium 4.2 mmol/L (3.5-5.1); Sodium 143 mmol/L (136-145)
== END 2023-09-12 15:48 | disposition home or self-care (01) ==
LOC: NCHCN 15:47
PROVIDERS: PCP Internal Medicine; Visit Provider Family Medicine
DX: N17.9 Acute kidney failure, unspecified (principal)
CPT/HCPCS: 80048

== ENCOUNTER 2023-10-23 12:43 | Outpatient (REF) | payer MEDICARE, MEDICAID, SELFPAY ==
[2023-10-23 16:04] LABS: TSH (W/Ref FT4) 4.47 uIU/mL (0.36-3.74)
[2023-10-23 16:52] LABS: FREE T4 1.03 ng/dL (0.76-1.46)
== END 2023-10-23 12:44 | disposition home or self-care (01) ==
LOC: NCHCN 12:43
PROVIDERS: PCP Internal Medicine; Visit Provider Family Medicine
DX: E03.9 Hypothyroidism, unspecified (principal)
CPT/HCPCS: 84439; 84443

== ENCOUNTER 2024-01-09 14:48 | Outpatient (REF) | payer MEDICARE, MEDICAID, SELFPAY ==
[2024-01-09 17:25] LABS: TSH 5.56 uIU/Ml (0.36-3.74)
== END 2024-01-09 14:49 | disposition home or self-care (01) ==
LOC: NCHCN 14:48
PROVIDERS: PCP Internal Medicine; Visit Provider Family Medicine
DX: E03.9 Hypothyroidism, unspecified (principal)
CPT/HCPCS: 84443

== ENCOUNTER 2024-03-07 11:44 | Outpatient (REF) | payer MEDICARE, MEDICAID, SELFPAY ==
[2024-03-07 17:08] LABS: TSH (W/Ref FT4) 2.15 uIU/mL (0.36-3.74)
== END 2024-03-07 11:45 | disposition home or self-care (01) ==
LOC: NCHCN 11:44
PROVIDERS: PCP Internal Medicine; Visit Provider Family Medicine
DX: E03.9 Hypothyroidism, unspecified (principal)
CPT/HCPCS: 84443

== ENCOUNTER 2024-04-11 10:54 | Outpatient (REF) | payer MEDICARE, MEDICAID, SELFPAY ==
[2024-04-11 15:50] LABS: Abs Immature Grans 0.03 10^3/uL (0.0-0.06); Absolute Basophil Count 0.05 10^3/uL (0.0-0.2); Absolute Eosinophil Count 0.18 10^3/uL (0.0-0.7); Absolute Lymphocyte Count 2.39 10^3/uL (1.2-3.4); Absolute Monocyte Count 0.72 10^3/uL (0.1-0.8); Absolute Neutrophil Count 4.94 10^3/uL (1.2-6.7); Basophils % 0.6 %; Eosinophils % 2.2 %; HCT 40.1 % (36.0-46.0); HGB 13.5 g/dL (11.2-15.7); Immature Grans % 0.4 %; Lymphocytes % 28.8 %; MCH 31.5 pg (27.0-33.0); MCHC 33.7 % (32.0-36.0); MCV 94 fL (80-95); MPV 11.1 fL (8.0-11.0); Monocytes % 8.7 %; Neutrophils % 59.3 %; Platelet Count 231 10^3/uL (130-400); RBC 4.28 10^6/uL (3.93-5.22); RDW 13.6 % (11.7-14.6); RDW-SD 46.5 fL; WBC 8.31 10^3/uL (4.4-10.8)
[2024-04-11 16:12] LABS: ALT 20 U/L (14-59); AST 19 U/L (15-37); Albumin 3.4 g/dL (3.4-5.0); Alkaline Phosphatase 113 U/L (46-116); Anion Gap 5.2 mmol/L (3-11); BUN 24 mg/dL (7-18); Bilirubin, Total 0.44 mg/dL (0.2-1.0); CO2 30.8 mmol/L (21.0-32.0); CREATININE 1.2 mg/dL (0.55-1.02); Chloride 108 mmol/L (98-107); Estimated GFR 46.62 (mL/min/1.73m2); Glucose 93 mg/dL (74-106); NT-proBNP 321 pg/mL (<300); Sodium 144 mmol/L (136-145); Total Protein 7.2 g/dL (6.4-8.2)
== END 2024-04-11 10:55 | disposition home or self-care (01) ==
LOC: NCHCN 10:54
PROVIDERS: PCP Internal Medicine; Visit Provider Family Medicine
DX: R42 Dizziness and giddiness (principal)
CPT/HCPCS: 80053; 83880; 85025

== ENCOUNTER 2024-05-27 13:57 | Outpatient (REF) | payer MEDICARE, MEDICAID, SELFPAY ==
[2024-05-27 15:34] LABS: Anion Gap 4.7 mmol/L (3-11); BUN 16 mg/dL (7-18); CO2 31.3 mmol/L (21.0-32.0); CREATININE 1.2 mg/dL (0.55-1.02); Calcium 9.4 mg/dL (8.5-10.1); Chloride 107 mmol/L (98-107); Estimated GFR 46.62 (mL/min/1.73m2); Glucose 120 mg/dL (74-106); Potassium 4.8 mmol/L (3.5-5.1); Sodium 143 mmol/L (136-145)
== END 2024-05-27 13:58 | disposition home or self-care (01) ==
LOC: NCHCN 13:57
PROVIDERS: PCP Internal Medicine; Visit Provider Family Medicine
DX: I10 Essential (primary) hypertension (principal)
CPT/HCPCS: 80048

== ENCOUNTER 2024-11-25 19:04 | Outpatient (REF) | payer MEDICARE, MEDICAID, SELFPAY ==
[2024-11-25 15:30] LABS: Anion Gap 6.9 mmol/L (3-11); BUN 18 mg/dL (7-18); CO2 31.1 mmol/L (21.0-32.0); Calcium 9.0 mg/dL (8.5-10.1); Chloride 106 mmol/L (98-107); Estimated GFR 58.02 (mL/min/1.73m2); Glucose 72 mg/dL (74-106); Potassium 4.2 mmol/L (3.5-5.1); Sodium 144 mmol/L (136-145); TSH 2.07 uIU/mL (0.36-3.74)
== END 2024-11-25 19:05 | disposition home or self-care (01) ==
LOC: NCHCN 19:04
PROVIDERS: PCP Internal Medicine; Visit Provider Family Medicine
DX: E03.9 Hypothyroidism, unspecified (principal); I10 Essential (primary) hypertension
CPT/HCPCS: 80048; 84443

== ENCOUNTER 2025-03-13 09:15 | Outpatient (REF) | payer MEDICARE, MEDICAID, SELFPAY ==
[2025-03-13 17:18] LABS: COMMENT (LAB VIEW ONLY) 84.04 mg/dL; Microalb ug/mg Crea 12.9 ug/mg Cr
== END 2025-03-13 09:16 | disposition home or self-care (01) ==
LOC: NCHCN 09:15
PROVIDERS: PCP Internal Medicine; Visit Provider Family Medicine
DX: I10 Essential (primary) hypertension (principal)
CPT/HCPCS: 82043; 82570

== ENCOUNTER 2025-03-31 13:30 | Outpatient (REF) | payer MEDICARE, MEDICAID, SELFPAY ==
[2025-04-01 13:19] LABS: Helicobacter pylori Ag, Feces Negative (Negative)
== END 2025-03-31 13:31 | disposition home or self-care (01) ==
LOC: NCHCN 13:30
PROVIDERS: PCP Internal Medicine; Visit Provider Family Medicine
DX: R10.13 Epigastric pain (principal)
CPT/HCPCS: 87338